=== PATIENT | male | born 1960 | race Caucasian/White ===

== ENCOUNTER 2017-05-12 23:47 | Emergency (ER) | payer OTHER ==
[~2017-05-12] VITALS: Ht 185.4 cm; Wt 88.5 kg
[2017-05-13] MEDS ORDERED: FLECAINIDE ACE100 MG PO (00:03)
[2017-05-13] MEDS ORDERED: LEVOTHYROXINE137 MCG PO (00:11)
[2017-05-13] MEDS ORDERED: ASPIR-LOW81 MG PO (00:11)
[2017-05-13] MEDS ORDERED: SIMVASTATIN40 MG PO (00:11)
[2017-05-13] MEDS ORDERED: FISH OIL 1,0001 EAC2 NG (00:12)
--- NOTE | 2017-05-13 07:17 | EKG ---
[facility] [address] [facility] [place] [address] Signed Atrial fibrillation with rapid ventricular response Left axis deviation Right bundle branch block Abnormal ECG No previous ECGs available Confirmed by TESSA HALL MD ([id number]) on 05/13/2017 7:17:13 AM Electronically Signed By: TESSA HALL MD 05/13/17 0717 PATIENT NAME: CHI SWANSON CESAR Electrocardiogram DATE OF : 58 PHYSICIAN: TESSA HALL MD REPORT #: [id number] REPORT IS CONFIDENTIAL AND NOT TO BE RELEASED WITHOUT AUTHORIZATION
== END 2017-05-13 02:00 | disposition home or self-care (01) ==
LOC: ED 23:47
DX: I48.91 Unspecified atrial fibrillation (principal); Z79.82 Long term (current) use of aspirin; Z79.899 Other long term (current) drug therapy
CPT/HCPCS: 71045; 80053; 84484; 85025; 85610; 85730; 93005; 93010; 99284

== ENCOUNTER 2023-11-18 06:30 | Day surgery (SDC) | payer OTHER ==
[~2023-11-18] VITALS: Ht 185.4 cm; Wt 93.6 kg
[~2023-11-18 06:30] MED LIST: ASPIR-LOW81 MG PO; FISH OIL 1,0001 EAC2 NG; FLECAINIDE ACE100 MG PO; LEVOTHYROXINE137 MCG PO; LEVOTHYROXINE150 MCG PO; LIPITOR40 MG PO; LISINOPRIL20 MG PO; MIDAZOLAM HCL 5 MG/5 ML VIAL IV PRN; SIMVASTATIN40 MG PO; fentaNYL citrate 100 MCG/2 ML VIAL IV PRN
[2023-11-18 06:52] VITALS: BP 99/60
[2023-11-18] MEDS ORDERED: MACULAR HEALTH1 EACH PO (06:54)
[2023-11-18] MEDS ORDERED: fentaNYL citrate 100 MCG/2 ML VIAL ONE (06:58)
[2023-11-18] MEDS ORDERED: MIDAZOLAM HCL 5 MG/5 ML VIAL ONE (06:58)
[2023-11-18] MEDS ORDERED: LIDOCAINE HCL 1% 5 ML SDV INJ ONE (07:00)
[2023-11-18] MEDS ORDERED: LACTATED RINGER'S 1,000 ML IV SCH (07:00)
[2023-11-18] MEDS ORDERED: IBLOOD GLUCOSE TEST STRIP 1 EA TEST VI PRN (07:00)
--- NOTE | 2023-11-18 08:52 | NUR ---
11/18/23 0852 BaringLynsey 0825- PT PRESENTS TO PACU, LEFT LATERAL POSITION, AWAKE BUT DROWSY AND FALLS BACK TO SLEEP. PT WAKES TO STIMULUS. 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 O2 IN PLACE AT 3L PER NC, LR INFUSING TO RH IV. ABD FLAT AND FIRM, NON DISTENDED, ENCOURAGED TO PASS GAS. WILL CONTINUE TO MONITOR. 0832- PT MOVED TO ROOM AIR, WAKES EASILY TO STIMULI. CONTINUE TO MONITOR. 0835- BP 85/54 HR 34, PT WAKES EASILY, CARDIAC RHYTHM SINUS BRADYCARDIA. LR TO GRAVITY, WIDE OPEN AND HUNG HIGHER. WILL CONTINUE TO MONITOR. 0845- 1ST LITER LR COMPLETED, BP INCREASED TO 90/55. WILL CONTINUE TO MONITOR.
[2023-11-18 10:26] VITALS: BP 113/65
--- NOTE | 2023-11-21 09:47 | OR ---
[facility] [address] [place], [place] [address] Signed DATE OF OPERATION: 11/18/2023 SURGEON: Tani Chilel MD PREOPERATIVE DIAGNOSIS: Colon screening. POSTOPERATIVE DIAGNOSIS: Polyp x1, midtransverse colon. PROCEDURE: Total colonoscopy to cecum with cold morcellation polypectomy x1. ANESTHESIA: Intravenous sedation; fentanyl 150 mcg and Versed 5 mg. INDICATION: This 63-year-old white man is a patient of Dr. Melani Willis. He underwent colonoscopy by me in 2011, which was normal. He has no family history of colon cancer. No current symptoms of bleeding, diarrhea, or constipation. He is admitted at this time to undergo colonoscopy. He understands the risk of bleeding, infection, and perforation. FINDINGS: The prep was good. Complete colonoscopy was undertaken with full visualization of the cecum. There was a small transverse colon polyp, which was excised. There were no other findings of concern. DESCRIPTION OF PROCEDURE: The patient was brought to the endoscopy suite and placed in the lateral decubitus position, given intravenous sedation to the point of slurred speech and nystagmus. Digital rectal examination was normal. Olympus video colonoscope was passed in the rectum and manipulated throughout the colon ultimately intubating the right colon with visualization of the cecum. A forceps was used to elevate the mucosa behind the ileocecal valve for full visualization showing no sign of abnormality. It was noted that the patient had relatively low heart rate through the course of the procedure extending from between 38 and 41 beats per minute without apparent symptoms. Electronically Signed By: TANI CHILEL MD 11/21/23 0947 PATIENT NAME: CHI SWANSON OPERATIVE REPORT DATE OF : 58 REPORT #: [id number] PHYSICIAN: TANI CHILEL MD PCP: MELANI WILLIS MD REPORT IS CONFIDENTIAL AND NOT TO BE RELEASED WITHOUT AUTHORIZATION [facility] [address] [place] [id number] Signed Once full visualization of cecum was accomplished, scope was carefully withdrawn. Irrigation undertaken as necessary, visualizing the mucosa well. In the mid transverse colon, there was a small polyp, this was excised with cold morcellation technique. Further withdrawal of the scope showed no other abnormality. Retroflexed view of the rectum was normal. Scope was removed and the patient was taken to the recovery room in good condition. CONCLUDING DIAGNOSIS: Polyp x1, transverse colon. PLAN: Recommend repeat colonoscopy in 5 years, sooner if symptoms should develop. He will return to the ongoing care of Dr. Willis. MD JAIR Reed/KTL /[id number] cc: Melani Willis MD Copies: MELANI WILLIS MD ~ Electronically Signed By: TANI CHILEL MD 11/21/23 0947 PATIENT NAME: CHI SWANSON OPERATIVE REPORT DATE OF : 58 REPORT #: [id number] PHYSICIAN: TANI CHILEL MD PCP: MELANI WILLIS MD REPORT IS CONFIDENTIAL AND NOT TO BE RELEASED WITHOUT AUTHORIZATION
--- NOTE | 2023-11-22 11:31 | PATH ---
[facility] [address] [facility] [place], [place] [address] Signed SPECIMEN(S): A TRANSVERSE COLON POLYP SPECIMEN SOURCE: A. TRANSVERSE COLON POLYP CLINICAL HISTORY: 2011 normal colonoscopy FINAL PATHOLOGIC DIAGNOSIS: Colon, transverse, polypectomy: - Tubular adenoma BRP MICROSCOPIC EXAMINATION: Histologic sections of all submitted blocks are examined by light microscopy. These findings, together with the gross examination, support the pathologic diagnosis. GROSS DESCRIPTION: The specimen, labeled and designated "Bert, transverse colon polyp," is received in formalin and consists of one branch soft tissue fragment, 0.3 cm. Entirely submitted in (A1). VB (under the direct supervision of a pathologist) The Gross Description was prepared using a voice recognition system. The report was reviewed for accuracy; however, sound-alike word errors, addition and/or deletions may occur. If there is any question about this report, please contact Client Services. ADDITIONAL NOTES: Immunohistochemical and/or in situ hybridization studies if performed in this case included appropriate positive controls that reacted as expected. This test was developed and its performance characteristics determined by Dr. Z. It has not been cleared or approved by the U.S. Food and Drug Administration. The FDA has determined that such clearance or approval is not necessary. This test is used for clinical purposes. It should not be regarded as investigational or for research. Dr. Z is certified under the Clinical Laboratory Improvement Amendments of 1988 (CLIA) as qualified to perform high complexity clinical laboratory testing. PATIENT NAME: CHI SWANSON PATHOLOGY DATE OF : 58 REPORT #: [id number] PHYSICIAN: LIT العراقي PCP: MELANI MELO MD REPORT IS CONFIDENTIAL AND NOT TO BE RELEASED WITHOUT AUTHORIZATION [facility] [address] [place], [place] [address] Signed PERFORMING LABORATORY: Technical component was performed by Dr. Z, [address] [place] [address] (CLIA# [id number]). Professional interpretation was performed by [facility] - [facility] [address] [address] (CLIA# [id number]). Diagnostician: Nithin Swanson MD Pathologist Electronically Signed 11/22/2023 Copies: ~ PATIENT NAME: CHI SWANSON PATHOLOGY DATE OF : 58 REPORT #: [id number] PHYSICIAN: LIT العراقي PCP: MELANI MELO MD REPORT IS CONFIDENTIAL AND NOT TO BE RELEASED WITHOUT AUTHORIZATION
== END 2023-11-18 09:40 | disposition home or self-care (01) ==
LOC: OPS 06:30 → DS 06:30 → OPS 07:30 → DS 07:30 → OPS 09:40
PROVIDERS: ATTEND Surgery
PROC: 0DBL8ZZ Excision of Transverse Colon, Via Natural or Artificial Opening Endoscopic (ICD-10-PCS; principal; 2023-11-18 07:30)
DX: Z12.11 Encounter for screening for malignant neoplasm of colon (principal); D12.3 Benign neoplasm of transverse colon; E03.9 Hypothyroidism, unspecified; I10 Essential (primary) hypertension
CPT/HCPCS: 93005; 93010; 99153; G0500; J2250; J3010; J7121